=== PATIENT | male | born 1990 | race American Indian/Alaskan Native ===

== ENCOUNTER 2018-10-27 18:24 | Emergency (ER) | payer SELFPAY ==
[2018-10-27] MEDS ORDERED: BOOSTRIX IM ONE (18:31)
[2018-10-27] MEDS ORDERED: ANCEF ONE ×2 (18:31→19:04)
[2018-10-27] MEDS ORDERED: NACL 0.9% 50 ML ONE (18:32)
[2018-10-27 18:33] VITALS: BP 133/97
[2018-10-27] MEDS ORDERED: MORPHINE IV ONE (18:35)
[2018-10-27] MEDS ORDERED: ZOFRAN IV ONE (18:35)
[2018-10-27] MEDS ORDERED: ceFAZolin 2 GM in NACL 0.9% 100 ML IV ONE (18:36)
[2018-10-27] MEDS ORDERED: TENIVAC IM ONE (18:38)
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
[2018-10-27 19:00] LABS: BUN/Creatinine Ratio 15; Blood Urea Nitrogen 16 mg/dL (9-20); Calcium 10.3 mg/dL (8.4-10.2); Hemolysis Index 3
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
== END 2018-10-27 19:30 | disposition home or self-care (01) ==
LOC: ED 18:24
DX: S71.102A Unspecified open wound, left thigh, initial encounter (principal); W34.09XA Accidental discharge from other specified firearms, initial encounter; Y93.89 Activity, other specified; Y92.89 Other specified places as the place of occurrence of the external cause; Y99.8 Other external cause status
CPT/HCPCS: 36415; 73552; 73590; 80048; 90471; 90715; 96365; 96375; 99284; J0690; J2270; J2405